=== PATIENT | female | born 1955 | race Caucasian/White ===

== ENCOUNTER 2021-09-23 14:55 | Outpatient (CLI) | payer BC, SELFPAY ==
--- NOTE | ~2021-09-23 | MM_ITS ---
EXAMINATION: MM screening [facility] BI w leidy HISTORY: Screening mammogram TECHNIQUE: Craniocaudal and mediolateral oblique 3-D tomosynthesis images were obtained and synthetic 2-D images were generated. CAD analysis was submitted and interpreted. COMPARISON: 10/31/2019, 10/21/2018 BREAST PARENCHYMAL COMPOSITION: The breasts are almost entirely fatty. FINDINGS: There is no evidence of suspicious mass, calcification, or architectural distortion to sugg est malignancy in either breast. There has been no suspicious interval change. IMPRESSION: 1. No mammographic evidence of malignancy. 2. Recommend routine screening mammography in one year. BI-RADS Category 1: Negative Reviewed, dictated and finalized at location A. OVOLTAIC TECHNICIAN
== END 2021-09-23 14:56 | disposition home or self-care (01) ==
LOC: ANHIMG 14:57
PROVIDERS: Visit Provider Nurse Practitioner Obstetrics & Gynecology
DX: Z12.31 Encounter for screening mammogram for malignant neoplasm of breast (principal)
CPT/HCPCS: 77063; 77067

== ENCOUNTER 2021-10-15 00:07 | Day surgery (SDC) | payer BC, SELFPAY ==
[2021-10-04 13:07] VITALS: BMI 28.2
[2021-10-15 07:28] VITALS: BP 114/77; PULSE 75; RESP 16; TEMP 36.4; O2SAT 100; BMI 29.0
[2021-10-15] MEDS: LACTATED RINGERS 1,000 ML 150 ML IV CONT (07:33)
--- NOTE | 2021-10-15 07:57 | P.PNAN_ITS ---
Anes - Initial Pre Proc Eval Procedure: Operation Date: 10/15/21 08:30 Proposed Procedures p Screening Colonoscopy - Yoni Clifton MD Date/Time: 10/15/21 07:57 Surgeon: Yoni Clifton MD Pre Op Diagnosis: hx of colon polyps, family hx colon ca Patient Data Age: 65 Gender: F Height: 1.47 m Weight: 63.1 kg Last Vital Signs Temp 97.6 F 10/15/21 07:28 Pulse 75 10/15/21 07:28 Resp 16 10/15/21 07:28 BP 114/77 10/15/21 07:28 Pulse Ox 100 10/15/21 07:28 Allergies Allergy/AdvReac Type Severity Reaction Status Date / Time egg Allergy Mild Rash Verified 10/15/21 07:17 Penicillins Allergy Mild Rash Verified 10/15/21 07:17 Home Medications Medication Instructions Recorded Confirmed Type aspirin 81 mg chewable tablet 81 mg PO DAILY 06/08/20 10/15/21 History Patient hx anesthesia problems: none Family hx anesthesia problems: none Results Review: All pre-operative results and documents have been reviewed as part of the pre-operative evaluation. [facility] Surgical History Surgical History (Updated 06/11/20 @ 07:36 by Jaclyn Fonseca NP) No history of previous surgery Social History Social History Smoking status: Former smoker Tobacco type: cigarettes Alcohol intake: current Drinks per week: 1 Substance use type: does not use Living arrangements: with family Spiritual care concerns: No Anes - Eval Final PreProcedure Day of Procedure 10/15/21 07:57 Patient weight: overweight Heart: regular rate and rhythm Lungs: clear to auscultation Airway: Mallampati scale class II Neurological: alert and oriented Last oral intake: >/= 8 hours ASA classification: II Emergent: no Anesthetic plan: proceed Anesthesia type and monitoring: general GIVS and standard monitoring Results Review: All pre-operative results and documents have been reviewed as part of the pre-operative evaluation. Informed Consent: The patient's anesthetic plan and its attendant risks and benefits were discussed with the patient/family/POA. Questions were solicited and answers provided to the satisfaction of the patient/family/POA.
--- NOTE | 2021-10-15 08:19 | P.CONGI_ITS ---
Assessment and Plan Assessment and plan (1) History of colon polyps: Code(s): Z86.010 - Personal history of colonic polyps Status: Acute Assessment and Plan: Patient has a history of colon polyps removed in 2006. Family history is significant for colon cancer. Plan is for screening colonoscopy now and at intervals in the future. (2) Family history of colon cancer in father: Code(s): Z80.0 - Family history of malignant neoplasm of digestive organs Status: Acute Assessment and Plan: Patient's father had colon cancer. Patient herself has had colon polyps in the past. Anticipate follow-up colonoscopy at 5 year intervals in the future. GI Consult Note Consult date/time: 10/15/21 08:19 HPI: Ivana Sanchez is a 65 year old female Presents for screening colonoscopy. Patient has a prior history of colon polyps. Her family history is significant that her father had colon cancer. Patient's current weight appetite bowel movements are normal. She denies abdominal pain. Bowel habits are regular and normal at this time. Review of Systems Review of Systems: All systems reviewed & are unremarkable except as noted in HPI and below [facility] Surgical History Surgical History (Updated 06/11/20 @ 07:36 by Jaclyn Fonseca NP) No history of previous surgery Social History Social History Smoking status: Former smoker Tobacco type: cigarettes Alcohol intake: current Drinks per week: 1 Substance use type: does not use Living arrangements: with family Spiritual care concerns: No Meds Home Medications and Allergies Home Medications Medication Instructions Recorded Confirmed Type aspirin 81 mg chewable tablet 81 mg PO DAILY 06/08/20 10/15/21 History Allergies Allergy/AdvReac Type Severity Reaction Status Date / Time egg Allergy Mild Rash Verified 10/15/21 07:17 Penicillins Allergy Mild Rash Verified 10/15/21 07:17 Vital Signs Vital Signs - 24 hr 10/15/21 07:28 Temperature 97.6 F Pulse Rate 75 Respiratory Rate 16 Blood Pressure 114/77 Pulse Oximetry 100 Exam Narrative: Physical exam reveals patient be alert. Vital signs stable. HEENT exam is unremarkable. Patient is anicteric. Lungs are clear to auscultation and percussion. Heart is without murmur or extra sounds. Abdominal exam bowel sounds are present soft nontender with no organomegaly. Digital external rectal exam is normal.
[2021-10-15 08:45] VITALS: BP 100/60; PULSE 71; RESP 21; O2SAT 98
[2021-10-15 08:55] VITALS: BP 102/62; PULSE 70; RESP 19; O2SAT 98
[2021-10-15 09:05] VITALS: BP 113/76; PULSE 66; RESP 18; O2SAT 100
== END 2021-10-15 09:15 | disposition home or self-care (01) ==
PROVIDERS: Visit Provider Internal Medicine Gastroenterology
PROC: 0DJD8ZZ Inspection of Lower Intestinal Tract, Via Natural or Artificial Opening Endoscopic (ICD-10-PCS; CPT 45378; principal; 2021-10-15 08:30)
DX: Z12.11 Encounter for screening for malignant neoplasm of colon (principal); Z80.0 Family history of malignant neoplasm of digestive organs; K57.30 Diverticulosis of large intestine without perforation or abscess without bleeding; Z86.010 Personal history of colon polyps; Z87.891 Personal history of nicotine dependence; Z79.82 Long term (current) use of aspirin
CPT/HCPCS: 45378; J2001; J2704; J7120

== ENCOUNTER 2022-02-28 12:35 | Outpatient (CLI) | payer OTHER, BC, SELFPAY ==
--- NOTE | ~2022-02-28 | DEXA_ITS ---
Bone Density Report Name: GARLAND LIVINGSTON Age: 66 Sex: Female Ethnicity: White Date of : 1955 Indication: osteopenia; parental hip fracture; postmenopausal Referring Provider: LEONARD, IVETT Terry Study: Bone densitometry was performed. Exam Date: February 28, 2022 Accession number: [id number] Bone Density: Region BMD T-score Z-score Classification AP Spine(L1-L4) 0.859 -1.7 0.1 Osteopenia Femoral Neck (Left) 0.612 -2.1 -0.6 Osteopenia Total Hip (Left) 0.813 -1.1 0.2 Osteopenia Femoral Neck (Right) 0.611 -2.1 -0.6 Osteopenia Total Hip (Right) 0.773 -1.4 -0.1 Osteopenia Total Hip Mean 0.793 -1.3 0.1 Osteopenia World Health Organization criteria for BMD impression classify patients as: Normal (T-score at or above -1.0), Osteopenia (T-score between -1.0 and -2.5), or Osteoporosis (T-score at or below -2.5). 10-year Fracture Risk(1): Major Osteoporotic Fracture 20% Hip Fracture 1.9% Reported Risk Factors: [place] (), Neck BMD=0.611, BMI=29.8, parental fracture (1) FRAX(R) Version 3.08. Fracture probability calculated for an untreated patient. Fracture probability may be lower if the patient has received treatment. Previous Exams: Region Exam Age BMD T-score BMD Change BMD Change Date g/cm2 vs Baseline vs Previous AP Spine (L1-L4) 02/28/2022 66 0.859 -1.7 -0.065 (-7.0%) -0.038 (-4.2%) 10/29/2018 62 0.897 -1.4 -0.027 (-3.0%) -0.027 (-3.0%) 08/22/2016 60 0.924 -1.1 Total Hip(Left) 02/28/2022 66 0.813 -1.1 -0.043 (-5.1%) -0.075 (-8.4%) 10/29/2018 62 0.889 -0.4 0.032 (3.7%)* 0.032 (3.7%)* 08/22/2016 60 0.857 -0.7 Total Hip(Right) 02/28/2022 66 0.773 -1.4 -0.024 (-3.0%) -0.099 (-11.4% 10/29/2018 62 0.872 -0.6 0.075 (9.4%)* 0.075 (9.4%)* 08/22/2016 60 0.797 -1.2 *Denotes significance at 95% confidence level, LSC for AP Spine = 0.022 g/cm2, LSC for Total Hip = 0.027 g/cm2 Clinical Information Provided by Patient: Parent has had a hip fracture Patient maximum height was 58 Menopause Age: 57 Drinks caffeinated beverages Onset of menses at age 12 Number of children 3 Impression: The patient has low bone mass, based on the Left Femoral Neck T-score. The patient has an estimated ten-year risk of hip fracture of 1.9% and an estimated ten-year risk of major fracture of 20%, based on the WHO FRAX algorithm. The patient has risk factors, including: parental hip frac
== END 2022-02-28 12:36 | disposition home or self-care (01) ==
LOC: ANHIMG 12:36
PROVIDERS: PCP Student in an Organized Health Care Education/Training Program; Visit Provider Nurse Practitioner Obstetrics & Gynecology
DX: M85.88 Other specified disorders of bone density and structure, other site (principal); M85.852 Other specified disorders of bone density and structure, left thigh; M85.851 Other specified disorders of bone density and structure, right thigh
CPT/HCPCS: 77080

== ENCOUNTER 2022-11-12 15:59 | Outpatient (CLI) | payer OTHER, SELFPAY ==
--- NOTE | ~2022-11-12 | MM_ITS ---
EXAMINATION: MM screening [facility] BI w leidy HISTORY: Screening mammogram TECHNIQUE: Craniocaudal and mediolateral oblique 3-D tomosynthesis images were obtained and synthetic 2-D images were generated. CAD analysis was submitted and interpreted. COMPARISON: 09/23/2021, 10/31/2019, 10/29/2018 bilateral screening mammogram examinations BREAST PARENCHYMAL COMPOSITION: The breasts are almost entirely fatty. FINDINGS: There is no evidence of suspicious mass, calcification, or architectural distortion to sugg est malignancy in either breast. There has been no suspicious interval change. IMPRESSION: 1. No mammographic evidence of malignancy. 2. Recommend routine screening mammography in one year. BI-RADS Category 1: Negative Reviewed, dictated and finalized at location A. ORATE ADMINISTRATOR
== END 2022-11-12 16:00 | disposition home or self-care (01) ==
LOC: ANHIMG 16:01
PROVIDERS: PCP Student in an Organized Health Care Education/Training Program; Visit Provider Student in an Organized Health Care Education/Training Program
DX: Z12.31 Encounter for screening mammogram for malignant neoplasm of breast (principal)
CPT/HCPCS: 77063; 77067

== ENCOUNTER 2023-12-22 15:46 | Outpatient (CLI) | payer OTHER, SELFPAY ==
--- NOTE | ~2023-12-22 | MM_ITS ---
EXAMINATION: MM screening [facility] BI w leidy HISTORY: Screening TECHNIQUE: Craniocaudal and mediolateral oblique 3-D tomosynthesis images were obtained and synthetic 2-D images were generated. CAD analysis was submitted and interpreted. COMPARISON: Comparison to multiple prior studies sequentially, with oldest reviewed study dated 08/03. BREAST PARENCHYMAL COMPOSITION: Not dense: There are scattered areas of fibroglandular density. FINDINGS: There is no evidence of suspicious mass, calcification, or architectural distortion to sugg est malignancy in either breast. There has been no suspicious interval change. IMPRESSION: 1. No mammographic evidence of malignancy. 2. Recommend routine screening mammography in one year. BI-RADS Category 1: Negative Reviewed, dictated and finalized at location A. K PAVER
== END 2023-12-22 15:47 | disposition home or self-care (01) ==
PROVIDERS: PCP Student in an Organized Health Care Education/Training Program; Visit Provider Student in an Organized Health Care Education/Training Program
DX: Z12.31 Encounter for screening mammogram for malignant neoplasm of breast (principal)
CPT/HCPCS: 77063; 77067

== ENCOUNTER 2024-05-04 09:46 | Outpatient (CLI) | payer OTHER, SELFPAY ==
--- NOTE | ~2024-05-04 | DEXA_ITS ---
Bone Density Report Name: GARLAND LIVINGSTON Age: 68 Sex: Female Ethnicity: White Date of : 1955 Indication: osteopenia; parental hip fracture; Referring Provider: ANGELINA, MALLORY Study: Bone densitometry was performed. Exam Date: May 04, 2024 Accession number: [id number] Bone Density: Region BMD T-score Z-score Classification AP Spine(L1-L4) 0.887 -1.5 0.5 Osteopenia Femoral Neck (Left) 0.589 -2.3 -0.7 Osteopenia Total Hip (Left) 0.803 -1.1 0.2 Osteopenia Femoral Neck (Right) 0.568 -2.5 -0.9 Osteoporosis Total Hip (Right) 0.793 -1.2 0.1 Osteopenia Total Hip Mean 0.798 -1.2 0.2 Osteopenia World Health Organization criteria for BMD impression classify patients as: Normal (T-score at or above -1.0), Osteopenia (T-score between -1.0 and -2.5), or Osteoporosis (T-score at or below -2.5). 10-year Fracture Risk: FRAX not reported because: Some T-score for Spine Total or Hip Total or Femoral Neck at or below -2.5 Previous Exams: Region Exam Age BMD T-score BMD Change BMD Change Date g/cm2 vs Baseline vs Previous AP Spine (L1-L4) 05/04/2024 68 0.887 -1.5 -0.037 (-4.1%) 0.028 (3.2%)* 02/28/2022 66 0.859 -1.7 -0.065 (-7.0%) -0.038 (-4.2%) 10/29/2018 62 0.897 -1.4 -0.027 (-3.0%) -0.027 (-3.0%) 08/22/2016 60 0.924 -1.1 Total Hip(Left) 05/04/2024 68 0.803 -1.1 -0.054 (-6.3%) -0.010 (-1.3%) 02/28/2022 66 0.813 -1.1 -0.043 (-5.1%) -0.075 (-8.4%) 10/29/2018 62 0.889 -0.4 0.032 (3.7%)* 0.032 (3.7%)* 08/22/2016 60 0.857 -0.7 Total Hip(Right) 05/04/2024 68 0.793 -1.2 -0.005 (-0.6%) 0.019 (2.5%) 02/28/2022 66 0.773 -1.4 -0.024 (-3.0%) -0.099 (-11.4% 10/29/2018 62 0.872 -0.6 0.075 (9.4%)* 0.075 (9.4%)* 08/22/2016 60 0.797 -1.2 *Denotes significance at 95% confidence level, LSC for AP Spine = 0.022 g/cm2, LSC for Total Hip = 0.027 g/cm2 Clinical Information Provided by Patient: Parent has had a hip fracture Has used the following medications: Vitamin D Patient maximum height was 58.0 Menopause Age: 57 Drinks caffeinated beverages Onset of menses at age 11 Number of children 3 Impression: The patient has osteoporosis, based on the Right Femoral Neck T-score. The patient has risk factors, including: parental hip fracture. No significant bone loss was observed. Discussion: INCREASED RISK OF FRACTURE. BONE DENSITY IS UNDESIRABLY LOW AT ONE OR MORE SKELETAL SITES
== END 2024-05-04 09:47 | disposition home or self-care (01) ==
LOC: ANHIMG 09:48
PROVIDERS: PCP Student in an Organized Health Care Education/Training Program; Visit Provider Student in an Organized Health Care Education/Training Program
DX: Z78.0 Asymptomatic menopausal state (principal); M85.88 Other specified disorders of bone density and structure, other site; M85.852 Other specified disorders of bone density and structure, left thigh; M85.851 Other specified disorders of bone density and structure, right thigh; M81.0 Age-related osteoporosis without current pathological fracture
CPT/HCPCS: 77080

== ENCOUNTER 2025-02-03 07:20 | Outpatient (CLI) | payer OTHER, SELFPAY ==
--- NOTE | ~2025-02-03 | MM_ITS ---
EXAMINATION: MM screening [facility] BI w leidy HISTORY: Screening TECHNIQUE: Craniocaudal and mediolateral oblique 3-D tomosynthesis images were obtained and synthetic 2-D images were generated. CAD analysis was submitted and interpreted. COMPARISON: Comparison to multiple prior studies sequentially, with oldest reviewed study dated 04/2017. BREAST PARENCHYMAL COMPOSITION: Not dense: There are scattered areas of fibroglandular density. FINDINGS: There is no evidence of suspicious mass, calcification, or architectural distortion to sugg est malignancy in either breast. There has been no suspicious interval change. IMPRESSION: 1. No mammographic evidence of malignancy. 2. Recommend routine screening mammography in one year. BI-RADS Category 1: Negative Reviewed, dictated and finalized at location A.
--- OUTSIDE RECORDS SUMMARY | 2025-02-03 07:24 | XMS_ITS | Clinical Summary ---
Author Organization [facility] Address [address] [place] [id number] Care Team Providers Care Alodize Machine Helper Name Role Phone Refugio Ramos DO Primary Care Provider + Allergies Active Allergy Reactions Criticality Noted Date Comments Penicillins Unknown 01/23/2022 Medications Vitamin D3 (VITAMIN D) 50 mcg tablet Take 1 tablet (50 mcg total) by mouth daily. Active Multiple Vitamins-Minerals (PRESERVISION AREDS 2 OR) Active alendronate (FOSAMAX) 70 MG tabletIndications :Age-related osteoporosis without current pathological fracture TAKE ONE TABLET BY MOUTH WEEKLY 4 tablet 08/17/2024 Active Active Problems No known active problems Immunizations Name Administration Dates Next Due Fluzone High Dose - >Age 65 (Prefilled Syringe) 09/10/2023 Influenza Adult (Generic) 08/21/2022,08/27/2021, 07/28/2020 Pneumococcal (Prevnar 20) 01/26/2023 Shingrix 01/04/2024,07/11/2023 Tdap (Generic) 08/27/2021 Family History Medical History Relation Comments Kidney Disease Brother SKIN CANCER Brother Colon Cancer Father Heart Attack Father Prostate Cancer Father Diabetes Mother Hypertension Mother SKIN CANCER Mother SKIN CANCER Sister Relation Status Comments Brother Alive Father Mother Sister Alive Social History Tobacco Use Types Packs/Day Years Used Date Smoking Tobacco: Former Cigarettes 0.5 10 1 976 - 1985 Smokeless Tobacco: Never Tobacco Cessation:Counseling Given: Not Answered Alcohol Use Standard Drinks/Week Comments Yes 1.7 (1 standard drink = 0.6 oz p ure alcohol) occas. 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 Gender Identity Not on file Sexual Orientation Not on file Occupation Industry Job Start Date Job End Date Not on file Not on file Not on file Not on file Last Filed Vital Signs Vital Sign Reading Time Taken Comments Blood Pressure 118/70 06/01/2024 9:24 AM CDT Pulse 63 06/01/2024 9:24 AM CDT Temperature 36.5 C (97.7 F) 06/01/2024 9:24 AM CDT Respiratory Rate 16 06/01/2024 9:24 AM CDT Oxygen Saturation 97% 06/01/2024 9:24 AM CDT Inhaled Oxygen Concentration - - Weight 53.3 kg (117 lb 8 oz) 06/01/2024 9:24 AM CDT Height 146.1 cm (4' 9.5 ) 06/01/2024 9:24 AM CDT Body Mass Index 24.99 06/01/2024 9:24 AM CDT Plan of Treatment Upcoming Encounters Date Type Department Care Team (Late st Contact Info) Description 04/07/2025 7:20 AM CDT Office Visit [facility] [address] [phone] Refugio Ramos DO [facility] [place] [address] 06/02/2025 7:20 AM CDT Office Visit [facility] [address] [place] [address] Refugio Ramos DO [address] [place] [address] Health Maintenance Due Date Last Done Comments Annual Medicare Wellness Visit 2021 COVID-19 Vaccine ( season) 2024 12/22/2023, 10/13/2022, 03/14/2022, Additional history exists PHQ-2 (Physician [place]) 11/02/2024 04/06/2024 Mammogram Screening 12/22/2025 12/22/2023, 12/22/2023, 11/12/2022 Colorectal Cancer Screening Colonoscopy (10 Years) 10/15/2026 10/15/2021 DTaP, Tdap and Td Vaccines (2 - Td or Tdap) 08/27/2031 08/27/2021 RSV Immunization or 60+ Years (1 - 1-dose 75+ series) 2031 Hepatitis C Completed 01/23/2022 Pneumococcal Vaccine: 65+ Years Completed 01/26/2023 Zoster Vaccines Completed 01/04/2024, 07/11/2023 Dexa Scan (General) Completed 05/04/2024, Meningococcal B Vaccine Aged Out No l onger eligible based on patient's age to complete this topic Meningococcal Vaccine Aged Out No sandra moy eligible based on patient's age to complete this topic RSV Immunizations Under 20 Months Aged Out No longer eligible based on patient's age to complete this topic Procedures Procedure Name Priority Date/Time Associated Diagnosis Comments BONE DENSITY GENERIC (SCAN ORDER) 05/04/2024 MAMMOGRAM GENERIC (SCAN ORDER) 12/22/2023 HEPATITIS C ANTIBODY W/RFX TO HCV RNA Routine 01/23/2022 8:15 AM CDT Need for hepatitis C screening test COLONOSCOPY GENERIC (SCAN ORDER) 10/15/2021 from Last 3 Months or Most Recently Relevant to Health Maintenance Results * BONE DENSITY GENERIC (SCAN ORDER) (05/04/2024) Anatomical Region Laterality Modality Other 05/04/2024 [facility] Scanned SCANNING Final Resu lt * MAMMOGRAM GENERIC (SCAN ORDER) (12/22/2023) Anatomical Region Laterality Modality Other 12/22/2023 [facility] Scanned SCANNING Final Resu lt * HEPATITIS C ANTIBODY W/RFX TO HCV RNA ([facility]) (01/23/2022 8:15 AM CDT) HEPATITIS C AB NON-REACTI VE NON-REACT MARY [facility] SIGNAL TO CUTOFF 0.01 <[address] [facility] Comment: HCV antibody was non-reactive. There is no laboratory evidence of HCV infection. In most cases, no further action is required. However, if recent HCV exposure is suspected, a test for HCV RNA (test code 20844) is suggested. For additional information please refer to http://education.[employer]/faq/CPK01h0 (This link is being provided for informational/ educational purposes only.) 01/23/2022 8:15 AM CDT 01/24/2022 12:03 PM CDT us Refugio Ramos DO LABORATORY Final Re sult [facility] [address] [place] [address] * COLONOSCOPY GENERIC (SCAN ORDER) (10/15/2021) 10/15/2021 [facility] Scanned SCANNING Final Resu lt from Last 3 Months or Most Recently Relevant to Health Maintenance Insurance [employer] Care Teams Alodize Machine Helper Relationship Specialty Start Date End Date Refugio Ramos DO [address] [place] [id number] PCP - General FAMILY PRACTICE 01/23/22
== END 2025-02-03 07:21 | disposition home or self-care (01) ==
LOC: ANHIMG 07:22
PROVIDERS: PCP Student in an Organized Health Care Education/Training Program; Visit Provider Student in an Organized Health Care Education/Training Program
DX: Z12.31 Encounter for screening mammogram for malignant neoplasm of breast (principal)
CPT/HCPCS: 77063; 77067